=== PATIENT | male | born 1995 | race Caucasian/White ===

== ENCOUNTER 2021-11-06 16:23 | Outpatient (CLI) | payer BC, SELFPAY ==
--- NOTE | ~2021-11-06 | XR_ITS ---
EXAMINATION: XR chest 2V Exam Date/Time: 11/06/2021 16:37 CDT CLINICAL HISTORY: R05.9 - Cough, unspecified Comparison: None available. RESULT: Lines, tubes, and devices: None. Lungs and pleura: Clear. Cardiomediastinal silhouette: Normal cardiomediastinal silhouette. Other: No acute osseous or upper abdominal finding. IMPRESSION: No acute cardiopulmonary process Reviewed, dictated and finalized at location [facility].
== END 2021-11-06 16:24 | disposition home or self-care (01) ==
LOC: ANHIMG 16:26
PROVIDERS: PCP Internal Medicine; Visit Provider Clinical Nurse Specialist
DX: R05.9 Cough, unspecified (principal)
CPT/HCPCS: 71046

== ENCOUNTER 2022-08-19 12:32 | Outpatient (CLI) | payer BC, MEDICAID, SELFPAY ==
[2022-08-19 12:55] LABS: Kit Draw Collected
== END 2022-08-19 12:33 | disposition home or self-care (01) ==
LOC: ANHGOSHLAB 12:34
PROVIDERS: PCP Internal Medicine; Visit Provider Clinical Nurse Specialist
DX: R74.01 Elevation of levels of liver transaminase levels (principal)
CPT/HCPCS: 36415

== ENCOUNTER 2022-08-19 23:36 | Emergency (ER) | payer BC, MEDICAID, SELFPAY ==
[2022-08-19 23:58] VITALS: BP 156/101; PULSE 91; RESP 24; TEMP 37.2; O2SAT 100
[2022-08-20 02:43] VITALS: PULSE 95; RESP 20; O2SAT 98
--- NOTE | 2022-08-20 05:23 | ED.GENADULT ---
HPI - General Adult General Chief complaint: Unspecified Stated complaint: tingling Time Seen by Provider: 08/20/22 05:01 History of Present Illness HPI narrative: Patient a 27-year-old gentleman who presents to the emergency department with chief complaint of tingling in the hands and feet. Patient reports that has not been sleeping for the last several days and had dental work done. Patient reports that this evening he took a dose of amoxicillin and then started having tingling in his hands and feet. Patient states it was bilateral reports that it was not unilateral reports no weakness Related Data Allergies Allergy/AdvReac Type Severity Reaction Status Date / Time No Known Allergies Allergy Verified 08/20/22 02:42 Review of Systems Review of Systems: A 10 system review of systems was completed on the patient and is negative except for what is stated in the HPI. Nursing and ancillary documentation was reviewed. [facility] Past Medical History Medical History Cognitive developmental delay Eczema of lower extremity Family History Family History Father Family history of psoriasis Social History Social History Social History: Caffeine- lots Smoking status: Never smoker Alcohol intake: never Lack of Transportation: No Lack of Food: Never True Current Housing: I Have Housing Concerned About Future Housing: No Difficulty Paying Gas/Electric Bills: No Difficulty Paying for Meds: No Currently Unemployed: No Difficulty w/ Childcare or Family Care: No Course Course Emergency Course: Patient is currently asymptomatic. Patient had no signs of stroke symptoms. He patient did also significantly report that he had been drinking a lot of water. A bedside Accu-Chek was performed which showed a blood sugar of 110. Patient is currently asymptomatic Vital Signs Vital signs: Vital Signs Temperature 37.2 C 08/19/22 23:58 Pulse Rate 91 08/19/22 23:58 Respiratory Rate 24 H 08/19/22 23:58 Blood Pressure 156/101 H 08/19/22 23:58 Pulse Oximetry 100 08/19/22 23:58 Oxygen Delivery Room Air 08/19/22 23:58 Temperature 37.2 C 08/19/22 23:58 Pulse Rate 95 08/20/22 02:43 Respiratory Rate 20 08/20/22 02:43 Blood Pressure 156/101 H 08/19/22 23:58 Pulse Oximetry 98 08/20/22 02:43 Oxygen Delivery Room Air 08/19/22 23:58 Medical Decision Making Vital Signs Vital Signs: Vital Signs Temperature 37.2 C 08/19/22 23:58 Pulse Rate 91 08/19/22 23:58 Respiratory Rate 24 H 08/19/22 23:58 Blood Pressure 156/101 H 08/19/22 23:58 Pulse Oximetry 100 08/19/22 23:58 Oxygen Delivery Room Air 08/19/22 23:58 Temperature 37.2 C 08/19/22 23:58 Pulse Rate 95 08/20/22 02:43 Respiratory Rate 20 08/20/22 02:43 Blood Pressure 156/101 H 08/19/22 23:58 Pulse Oximetry 98 08/20/22 02:43 Oxygen Delivery Room Air 08/19/22 23:58 Discharge Plan Discharge Clinical Impression: Paresthesia Patient Disposition: Home, Self-Care Condition: Stable Instructions: Antibiotic Form, Paresthesia (ED) Prescriptions: No Action fluticasone propionate [Flonase Allergy Relief] 50 mcg/actuation spray,suspension 1 spray intranasal Q12H Qty: 16 1RF Rx Instructions: administer into each nostril Follow-up/Referrals: Miguel Angel Chan DO [Primary Care Provider] - Time of Disposition: 05:26
[2022-08-20 05:28] LABS: Glucose Point of Care 110 mg/dl (65-105)
[2022-08-20 05:58] VITALS: BP 153/103; PULSE 100; RESP 16; O2SAT 97
== END 2022-08-20 06:00 | disposition home or self-care (01) ==
PROVIDERS: Emergency Provider Emergency Medicine; PCP Internal Medicine
DX: R20.2 Paresthesia of skin (principal); F88 Other disorders of psychological development
CPT/HCPCS: 82948; 99282